=== PATIENT | female | born 1985 | race Caucasian/White ===

== ENCOUNTER 2017-09-29 17:10 | Emergency (ER) | payer SELFPAY ==
--- NOTE | 2017-09-29 17:39 | EDM.PDOC ---
ED HPI GENERAL MEDICAL PROBLEM - General Chief Complaint: Lower Extremity Injury/Pain Stated Complaint: FALL/PAIN LT KNEE Time Seen by Provider: 09/29/17 17:35 Source of Information: Reports: Patient History Limitations: Reports: No Limitations - History of Present Illness INITIAL COMMENTS - FREE TEXT/NARRATIVE: HISTORY AND PHYSICAL: []32-year-old female presenting with left knee pain History of Present Illness: []Patient was working at [employer] and fell striking her knee on the floor 2 days ago There is ecchymosis present and she would like her knee checked out. Patient thought she heard a popping and crackling. Review of Systems: As per history of present illness and below otherwise all systems reviewed and negative. Past medical history: As per history of present illness and as reviewed below otherwise noncontributory. Surgical history: As per history of present illness and as reviewed below otherwise noncontributory. Social history: No reported history of drug or alcohol abuse. Family history: As per history of present illness and as reviewed below otherwise noncontributory. Physical exam: Alert and oriented female answering questions appropriately in full sentences without any shortness of breath was noted that she walked into the emergency department. HEENT: Atraumatic, normocehpalic, pupils reactive, negative for conjunctival pallor or scleral icterus, mucous membranes moist, throat clear, neck supple, nontender, trachea midline. Lungs: Clear to auscultation, breath sounds equal bilaterally, chest non tender. Heart: S1S2, regular, negative for clicks, rubs, or JVD. Abdomen: Soft, nondistended, nontender. Negative for masses or hepatossplenmegaly. Negative for costovertebral tenderness. Pelvis: Stable nontender. Genitourinary: Deferred. Rectal: Deferred Extremities: Ecchymosis ecchymosis noted to the anterior surface of her left knee. Slight amount of edema is present in full range of motion is present no gross abnormalities were noted on physical examination., negative for cords or calf pain. Anterior drawer negative. Mild lacicity to lateral movement. Neurovascular unremarkable. Neuro: Awake, alert, oriented. Cranial nerves II through XII unremarkable. Cerebellum unremarkable. Motor and sensory unremarkable throughout. Exam nonfocal. Discussed with this patient that no fractures or dislocation were identified on x-ray There is some soft tissue swelling.] Bruising. Diagnostics: []xray left knee Therapeutics: [] Impression: []Knee injury Plan: []Discharged home Follow up with your primary care provider if not improving Ibuprofen or Tylenol for discomfort May ice this on and off 3 times a day for 15-20 minutes to reduce the swelling Return to the emergency department as discussed and directed Definitive disposition and diagnosis as appropriate pending reevaluation and review of above. Onset: Sudden Duration: Day(s): (2) Location: Reports: Lower Extremity, Left Quality: Reports: Ache Severity: Mild Improves with: Reports: None Worsens with: Reports: None - Related Data Allergies Allergy/AdvReac Type Severity Reaction Status Date / Time No Known Allergies Allergy Verified 09/29/17 17:33 Home Meds: Home Meds . [No Known Home Meds] 09/29/17 [History] Review of Systems - Review of Systems Review Of Systems: ROS reveals no pertinent complaints other than HPI. ED EXAM, GENERAL - Physical Exam Exam: See Below (see dictation) Course - Vital Signs Last Recorded V/S: Last Vital Signs Temp 37.2 C 09/29/17 17:33 Pulse 95 09/29/17 17:33 Resp 20 09/29/17 17:33 BP 131/79 09/29/17 17:33 Pulse Ox 97 09/29/17 17:33 - Orders/Labs/Meds Orders: Active Orders 24 hr Category Date Time Status Knee 3V Lt [CR] Stat Exams 09/29/17 17:34 Taken Departure - Departure Time of Disposition: 18:36 Disposition: Home, Self-Care 01 Condition: Good Clinical Impression: Contusion of knee Left knee injury Qualifiers: Encounter type: initial encounter Qualified Code(s): S89.92XA - Unspecified injury of left lower leg, initial encounter - Discharge Information *PRESCRIPTION DRUG MONITORING PROGRAM REVIEWED*: Not Applicable *COPY OF PRESCRIPTION DRUG MONITORING REPORT IN PATIENT FLO: Not Applicable Instructions: Contusion, [id number] Referrals: PCP,None [Primary Care Provider] - Forms: ED Department Discharge Additional Instructions: The following information is given to patients seen in the emergency department who are being discharged to home. This information is to outline your options for follow-up care. We provide all patients seen in our emergency department with a follow-up referral. The need for follow-up, as well as the timing and circumstances, are variable depending upon the specifics of your emergency department visit. If you don't have a primary care physician on staff, we will provide you with a referral. We always advise you to contact your personal physician following an emergency department visit to inform them of the circumstance of the visit and for follow-up with them and/or the need for any referrals to a consulting specialist. The emergency department will also refer you to a specialist when appropriate. This referral assures that you have the opportunity for followup care with a specialist. All of these measure are taken in an effort to provide you with optimal care, which includes your followup. Under all circumstances we always encourage you to contact your private physician who remains a resource for coordinating your care. When calling for followup care, please make the office aware that this follow-up is from your recent emergency room visit. If for any reason you are refused follow-up, please contact the [facility] emergency department at and asked to speak to the emergency department charge nurse. Follow-up with your primary care provider if not improving Alternate Tylenol and ibuprofen for discomfort Ice on 20 minutes 3 times a day for swelling Return to the emergency department is distracted and discussed - My Orders Last 24 Hours: My Active Orders 09/29/17 17:34 Knee 3V Lt [CR] Stat - Assessment/Plan Last 24 Hours: My Active Orders 09/29/17 17:34 Knee 3V Lt [CR] Stat
--- NOTE | 2017-09-30 09:27 | CR ---
EXAM DATE: 09/29/17 PATIENT'S AGE: 32 Patient: TERE MCNEIL Facility: [place], [place] Site . Site : 1985 Study: XRay Knee Left [id number]/17/2018 5:56:22 PM Ordering Physician: Doctor Pelaez Final Report: INDICATION: fall COMPARISON: None. FINDINGS: Three views of the left knee demonstrate normal osseous mineralization and alignment. There is no evidence of acute fracture or dislocation. Joint spaces are preserved. No joint effusion. IMPRESSION: No acute osseous abnormality. Dictated by Bobby White MD @ 09/29/2017 6:17:01 PM Dictated by: Bobby White MD @ 09/29/2017 18:17:17 (Electronic Signature) Report Signed by Proxy. MILES
== END 2017-09-29 18:58 | disposition home or self-care (01) ==
LOC: MW.ED 17:10
DX: S80.02XA Contusion of left knee, initial encounter (principal); W01.198A Fall on same level from slipping, tripping and stumbling with subsequent striking against other object, initial encounter; Y99.0 Civilian activity done for income or pay
CPT/HCPCS: 73562-26-LT; 73562-LT; 99283

== ENCOUNTER 2018-12-02 16:49 | Emergency (ER) | payer SELFPAY ==
--- NOTE | 2018-12-02 16:58 | EDM.PDOC ---
ED HPI GENERAL MEDICAL PROBLEM - General Chief Complaint: Lower Extremity Injury/Pain Stated Complaint: right foot pain Time Seen by Provider: 12/02/18 16:50 Source of Information: Reports: Patient History Limitations: Reports: No Limitations - History of Present Illness INITIAL COMMENTS - FREE TEXT/NARRATIVE: HISTORY AND PHYSICAL: History of present illness: Patient is a 33-year-old female who presents to the emergency room with complaints of anterior right foot pain. She states that she has been having pain for approximately 2-3 weeks. She states that she has tried using an Lucius wrap and resting without much relief. 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 States the pain is worse right away in the morning and in the evening before bed. She denies any injury, trauma or falls. Denies any numbness , tingling or weakness of the affected extremity. Denies any systemic complaints. Review of systems: As per history of present illness and below otherwise all systems reviewed and negative. Past medical history: As per history of present illness and as reviewed below otherwise noncontributory. Surgical history: As per history of present illness and as reviewed below otherwise noncontributory. Social history: See social history for further information Family history: As per history of present illness and as reviewed below otherwise noncontributory. Physical exam: General: Well-developed and well-nourished 33-year-old female. Alert and oriented. Nontoxic appearing and in no acute distress. HEENT: Atraumatic, normocephalic, pupils equal and reactive bilaterally, negative for conjunctival pallor or scleral icterus, mucous membranes moist, trachea midline. No drooling or trismus noted. No meningeal signs. No hot potato voice noted. Lungs: Clear to auscultation, breath sounds equal bilaterally, chest nontender. Heart: S1S2, regular rate and rhythm without overt murmur Abdomen: Soft, nondistended, nontender. Skin: Intact, warm, dry. No lesions or rashes noted. Extremities: Atraumatic, moves all extremities per self without difficulty or deficits, negative for cords or calf pain. Pain with palpation on the anterior aspect of the right mid foot .Neurovascular unremarkable. Neuro: Awake, alert, oriented. Cranial nerves II through XII unremarkable. Cerebellum unremarkable. Motor and sensory unremarkable throughout. Exam nonfocal. Notes: X-ray shows no acute findings. We discussed the need for following up with podiatry. We'll give her crutches so she is able to have comfort care. Supportive care measures were reviewed and discussed. Voices understanding and is agreeable to plan of care. Denies any further questions or concerns at this time. Diagnostics: Right foot x-ray Therapeutics: Crutches Prescription: Diclofenac Impression: Right foot pain Plan: 1. Rest, ice, elevate the affected extremity. Please wear the splint as directed. 2. Tylenol and/or Ibuprofen as needed for pain management. 3. Follow up with the Orthopedic provider or night shift supervisor as we discussed. Return to the ED as needed and as discussed. Definitive disposition and diagnosis as appropriate pending reevaluation and review of above. Right Foot Pain Score (Numeric/FACES): 15 - Related Data Allergies Allergy/AdvReac Type Severity Reaction Status Date / Time No Known Allergies Allergy Verified 09/29/17 17:33 Home Meds: Home Meds Ibuprofen [Ibu] 400 mg PO DAILY PRN 12/02/18 [History] Past Medical History - Infectious Disease History Infectious Disease History: Reports: Chicken Pox - Past Surgical History GI Surgical History: Reports: Cholecystectomy Musculoskeletal Surgical History: Reports: Other (See Below) Other Musculoskeletal Surgeries/Procedures:: Edema to legs Social & Family History - Family History Family Medical History: Noncontributory Review of Systems - Review of Systems Review Of Systems: ROS reveals no pertinent complaints other than HPI. ED EXAM, GENERAL - Physical Exam Exam: See Below (See dictation) Course - Vital Signs Last Recorded V/S: Last Vital Signs Temp 97.3 F 12/02/18 17:05 Pulse 98 12/02/18 18:23 Resp 16 12/02/18 18:23 BP 117/67 12/02/18 18:23 Pulse Ox 96 12/02/18 18:23 - Orders/Labs/Meds Orders: Active Orders 24 hr Category Date Time Status DME for Discharge [COMM] Stat Oth 12/02/18 18:13 Ordered Departure - Departure Time of Disposition: 17:51 Disposition: Home, Self-Care 01 Clinical Impression: Right foot pain - Discharge Information Instructions: Foot Sprain Referrals: PCP,None [Primary Care Provider] - Forms: ED Department Discharge Additional Instructions: The following information is given to patients seen in the emergency department who are being discharged to home. This information is to outline your options for follow-up care. We provide all patients seen in our emergency department with a follow-up referral. The need for follow-up, as well as the timing and circumstances, are variable depending upon the specifics of your emergency department visit. If you don't have a primary care physician on staff, we will provide you with a referral. We always advise you to contact your personal physician following an emergency department visit to inform them of the circumstance of the visit and for follow-up with them and/or the need for any referrals to a consulting specialist. The emergency department will also refer you to a specialist when appropriate. This referral assures that you have the opportunity for follow-up care with a specialist. All of these measure are taken in an effort to provide you with optimal care, which includes your follow-up. Under all circumstances we always encourage you to contact your private physician who remains a resource for coordinating your care. When calling for follow-up care, please make the office aware that this follow-up is from your recent emergency room visit. If for any reason you are refused follow-up, please contact the [facility] Emergency Department at and asked to speak to the emergency department charge nurse. [facility] [address] [place] [id number] [address] 1. Rest, ice, elevate the affected extremity. Please wear the splint as directed. 2. Tylenol as needed for pain management. Diclofenac as prescribed. 3. Follow up with the Orthopedic provider or night shift supervisor as we discussed. Return to the ED as needed and as discussed. - My Orders Last 24 Hours: My Active Orders 12/02/18 18:13 DME for Discharge [COMM] Stat - Assessment/Plan Last 24 Hours: My Active Orders 12/02/18 18:13 DME for Discharge [COMM] Stat
--- NOTE | 2018-12-02 17:46 | CR ---
Indication: Pain. No injury. Technique: Three views of the right foot were obtained. Comparison: None Findings: No acute fracture or subluxation is identified. The joint spaces are well maintained. Impression: No acute fracture. Dictated by Josee Riley MD @ Dec 02 2018 5:44PM Signed by Dr. Josee Riley @ Dec 02 2018 5:44PM
== END 2018-12-02 18:24 | disposition home or self-care (01) ==
LOC: MW.ED 16:49
DX: M79.671 Pain in right foot (principal); Z90.49 Acquired absence of other specified parts of digestive tract
CPT/HCPCS: 73630-26-RT; 73630-RT; 99283-25

== ENCOUNTER 2021-07-29 18:22 | Emergency (ER) | payer MEDICAID, OTHER ==
[2021-07-29] MEDS ORDERED: Lidocaine 1% 5 ML VIAL ONE (21:24)
[2021-07-29] MEDS ORDERED: Dexamethasone 10 MG/ML SDV PO ONE (21:24)
[2021-07-29] MEDS ORDERED: Codeine/guaiFENesin 10-100 MG/5 ML Syrup 5 ML Cup PO ONE (21:25)
== END 2021-07-29 22:12 | disposition home or self-care (01) ==
LOC: MW.ED 18:22
DX: H66.91 Otitis media, unspecified, right ear (principal); B34.9 Viral infection, unspecified; I10 Essential (primary) hypertension; E66.9 Obesity, unspecified; Z68.28 Body mass index [BMI] 28.0-28.9, adult; Z79.899 Other long term (current) drug therapy; Z90.49 Acquired absence of other specified parts of digestive tract; Z20.822 Contact with and (suspected) exposure to COVID-19
CPT/HCPCS: 71046; 87635; 99283; A9270; J8540; U0002

== ENCOUNTER 2022-08-08 16:52 | Emergency (ER) | payer MEDICAID ==
[2022-08-08] MEDS ORDERED: traMADol 50 MG Tab PO STA (19:10)
== END 2022-08-08 20:24 | disposition home or self-care (01) ==
LOC: MW.ED 16:52
DX: S93.402A Sprain of unspecified ligament of left ankle, initial encounter (principal); I10 Essential (primary) hypertension; F17.210 Nicotine dependence, cigarettes, uncomplicated; E66.9 Obesity, unspecified; Z68.41 Body mass index [BMI] 40.0-44.9, adult; Z91.018 Allergy to other foods; Z79.84 Long term (current) use of oral hypoglycemic drugs; X50.1XXA Overexertion from prolonged static or awkward postures, initial encounter; Y92.002 Bathroom of unspecified non-institutional (private) residence as the place of occurrence of the external cause
CPT/HCPCS: 73610; 99283; A9270

== ENCOUNTER 2023-01-19 05:52 | Emergency (ER) | payer MEDICAID ==
[2023-01-19] MEDS ORDERED: Benzocaine 20% Topical Spray UD MUCMEM ONE (06:10)
[2023-01-19] MEDS ORDERED: Lidocaine 2% Viscous Solution 15 ML UD PO ONE (06:10)
== END 2023-01-19 06:25 | disposition home or self-care (01) ==
LOC: MW.ED 05:52
DX: A69.1 Other Vincent's infections (principal); E11.9 Type 2 diabetes mellitus without complications; I10 Essential (primary) hypertension; E66.9 Obesity, unspecified; F17.210 Nicotine dependence, cigarettes, uncomplicated; Z68.42 Body mass index [BMI] 45.0-49.9, adult; Z91.040 Latex allergy status; Z79.84 Long term (current) use of oral hypoglycemic drugs; Z91.018 Allergy to other foods; Z88.8 Allergy status to other drugs, medicaments and biological substances; Z79.899 Other long term (current) drug therapy
CPT/HCPCS: 99282; A9270; 99283

== ENCOUNTER 2023-03-27 13:55 | Emergency (ER) | payer MEDICAID ==
[2023-03-27] MEDS ORDERED: Lidocaine 2% Viscous Solution 15 ML UD PO ONE (14:19)
[2023-03-27] MEDS ORDERED: Ketorolac 30 MG/ML SDV IM ONE (14:19)
[2023-03-27] MEDS ORDERED: Benzocaine 20% Topical Spray UD MUCMEM ONE (14:20)
== END 2023-03-27 14:40 | disposition home or self-care (01) ==
LOC: MW.ED 13:55
DX: K08.89 Other specified disorders of teeth and supporting structures (principal); I10 Essential (primary) hypertension; E11.9 Type 2 diabetes mellitus without complications; E66.9 Obesity, unspecified; Z79.84 Long term (current) use of oral hypoglycemic drugs; Z91.018 Allergy to other foods; Z91.040 Latex allergy status; Z68.41 Body mass index [BMI] 40.0-44.9, adult
CPT/HCPCS: 96372; 99282; A9270; J1885; 99283